=== PATIENT | male | born 1965 | race Caucasian/White ===

== ENCOUNTER 2023-07-31 07:49 | Outpatient (CLI) | payer OTHER, SELFPAY ==
--- NOTE | 2023-07-31 07:54 | FL_ITS ---
FINAL REPORT CLINICAL HISTORY: GERD Fluoro time: 3.51 DAP: 6302.78 FINDINGS: UPPER GI WITH SBFT HISTORY: Epigastric pain. Gastroesophageal reflux disease. PROCEDURE: The patient ingested barium. Effervescent crystals were also administered. Spot and overhead films were obtained. Additional barium was administered for a SBFT. 30 images were obtained. Fluoro time: 3 minutes 51 seconds DAP: 6302.78 uGy.m2 FINDINGS: UGI: The esophagus is normal. There is a small sliding type hiatal hernia hiatal hernia. There was gastroesophageal reflux. Peristalsis is normal. The rugal fold pattern of the stomach is normal. The duodenal bulb is normal. SBFT: The station worker film is normal. There is no evidence of obstruction. The mucosal fold pattern is normal. The terminal ilium is normal. IMPRESSION: Small sliding-type hiatal hernia with gastroesophageal reflux. Unremarkable small bowel follow-through. Films reviewed , interpreted and dictated by Dr. Yadav. Transcribed by Howard Marlow PA-C. Reviewed, Interpreted and Dictated by Lisandro Yadav MD Transcribed by TON Ferguson Authenticated and [facility]
[2023-07-31] MEDS: BARIUM SULFATE(LIQUID E-Z-PAQUE);355ML BOTTLE 355 ML PO (08:33)
[2023-07-31] MEDS: BARIUM SULFATE (E-Z-HD 340GM);135ML BOTTLE 135 ML PO (08:33)
[2023-07-31] MEDS: E-Z-GASII EFFERVESCENT GRANULES;1PK 1 EACH PO (08:34)
[2023-07-31] MEDS: DIATRIZOATE MEGLUMINE(GASTROGRAFIN) 66%-10% 120ML 30 ML PO (08:34)
== END 2023-07-31 23:59 ==
LOC: RAD 07:49
PROVIDERS: PCP Family Medicine; Visit Provider Physician Assistant
DX: K21.9 Gastro-esophageal reflux disease without esophagitis (principal)
CPT/HCPCS: 74246; 74248

== ENCOUNTER 2024-07-29 12:34 | Emergency (ER) | payer OTHER, SELFPAY ==
[2024-07-29 12:42] VITALS: BMI 28.7
--- NOTE | 2024-07-29 12:43 | XR_ITS ---
FINAL REPORT CLINICAL HISTORY: FALL COMPARISON: None FINDINGS: LEFT FOOT Three views of the left foot demonstrate no acute fracture or dislocation. The visualized joint spaces are normally aligned. There is a small plantar spur. The soft tissues are unremarkable. IMPRESSION: No acute bony abnormality. Reviewed, Interpreted and Dictated by Lisandro Yadav MD Transcribed by Ilana Avila Authenticated and [facility]
--- NOTE | 2024-07-29 12:43 | XR_ITS ---
FINAL REPORT CLINICAL HISTORY: FALL COMPARISON: None FINDINGS: LEFT ANKLE Three views demonstrate no acute fracture or dislocation. There is prominent soft tissue swelling about the ankle, particularly medially. There are well corticated ossific densities adjacent to the medial malleolus measuring up to 7 mm. These probably represent sequela from old trauma but do not appear acute. There is a small plantar spur seen on the lateral view. IMPRESSION: Soft tissue swelling without definite acute bony abnormality. Reviewed, Interpreted and Dictated by Lisandro Yadav MD Transcribed by Ilana Avila Authenticated and [facility]
[2024-07-29 13:40] VITALS: BP 113/83; PULSE 87; RESP 20; TEMP 36.7; O2SAT 97; BMI 28.4
--- NOTE | 2024-07-29 13:41 | ED_ITS ---
Discharge Plan Disposition Patient Disposition: Home, Self-Care Condition: Good Prescriptions Prescriptions: No Action omeprazole 40 mg capsule,delayed release(DR/EC) 40 mg PO DAILY Qty: 30 2RF Referrals Follow up/Referrals: Liang Cifuentes MD [Primary Care Provider] - See instructions Roz Moses DPM [Staff Physician] - See instructions Activity Restrictions/Add. Instructions Additional Instructions/Restrictions: Rest the extremity, apply ice for 15 minutes as tolerated three or four times per day for the next couple of days, Elevate the extremity as tolerated while you are resting. Take tylenol or ibuprofen for pain. Follow up with Dr. Moses (podiatry). I put in a referral but you need to call her office and schedule an appointment. Follow up with your regular doctor. GO TO THE ER FOR ANY WORSENING SYMPTOMS Clinical Impressions Clinical Impression: Sprain of left foot, Avulsion fracture of lateral malleolus of left fibula Instructions Patient Instructions: DI for Avulsion Fracture, DI for Foot Sprain, How to Use a Walking Boot Print Language Print Language: Sinhala Discharge ED Provider: Devonte Garza [facility] General Stated complaint: fall L ankle pain 07/28 Time Seen by Provider: 07/29/24 13:40 History of Present Illness Provider Complaint: He states that yesterday he slipped on ice and twisted his left ankle and foot. Since then he has had left ankle and foot swelling and pain. He states that his pain is much worse when he walks or bears weight on the foot. He denies any other injury. Related Data Previous Rx's ?Medication ?Instructions ?Recorded omeprazole 40 mg capsule,delayed 40 mg PO DAILY #30 caps 04/09/22 release Allergies Allergy/AdvReac Type Severity Reaction Status Date / Time No Known Allergies Allergy Verified 04/09/22 15:53 [facility] Disclaimer: The information contained in this section may have been updated after the patient was seen, as this information can be updated by other users. Social History Smoking Status: Never smoker alcohol intake: never current occupational status: retired Travel in the last 8 weeks: None ROS Obtained: Yes All systems reviewed & no additional complaints except as documented Constitutional Constitutional: Denies chills and Denies fever(s) Eyes Eyes: Denies eye discharge ENT Ears, Nose, Mouth, and Throat: Denies dizziness, Denies otalgia and Denies sore throat Cardiovascular Cardiovascular: Denies chest pain Respiratory Respiratory: Denies shortness of breath, Denies chest congestion, Denies cough, Denies stridor and Denies wheezing Gastrointestinal Gastrointestingal: Denies nausea or vomiting Musculoskeletal Musculoskeletal: Reports as per HPI Integumentary/Breasts Skin/Breast: Denies rash Neurologic Neurologic: Denies dizziness and Denies paresthesias Allergic/Immunologic Allergic/Immunologic: Denies wheezing Physical Exam General General appearance: alert and in no apparent distress Head Head exam: atraumatic, normocephalic and normal inspection Eye Eye exam: Present normal appearance, PERRL and EOMI ENT ENT exam: Present normal exam, normal oropharynx, mucous membranes moist, TM's normal bilaterally and normal external ear exam Neck Neck exam: Present normal inspection, full ROM and trachea midline; Absent meningismus or lymphadenopathy Chest Chest inspection: Present normal inspection and symmetric chest wall rise; Absent tenderness Respiratory Respiratory exam: Present normal lung sounds bilaterally; Absent respiratory distress Cardiovascular Cardiovascular exam: Present regular rate and normal rhythm; Absent JVD Abdominal Exam Abdominal exam: Present soft and normal bowel sounds; Absent distention, tenderness or guarding Extremities Exam Extremities exam: Present normal capillary refill; Absent calf tenderness Expanded Lower Extremity Exam Left: Knee exam: Present normal inspection, full ROM and knee extension intact; Absent tenderness Lower leg exam: Present normal inspection, full ROM and Achilles tendon intact; Absent tenderness or Homans' sign Ankle exam: Present tenderness and swelling; Absent full ROM, abrasion, laceration, ecchymosis, deformity, crepitus, dislocation, erythema, tenderness over talofibular lig or anterior draw sign Foot/toe exam: Present tenderness and swelling; Absent full ROM, abrasion, laceration, ecchymosis, deformity, crepitus, dislocation, erythema, amputation, puncture wound, foreign body, calcaneal tenderness, tenderness at base of 5th metatarsal, nail avulsion or subungual hematoma Neurovascular/Tendon exam: Present normal capillary refill, normal 2-point discrimination and normal fine/light touch; Absent pulse deficit, motor deficit, sensory deficit, tendon deficit, extremity cold to touch or pallor Gait: observed and limited by pain Back Exam Back exam: Present normal inspection; Absent tenderness Neurological Exam Neurological exam: Present alert and oriented X3 Psychiatric Psychiatric exam: Present normal affect and normal mood Skin Skin exam: Present warm, dry, intact and normal color Lymphatic Lymphatic Findings: no adenopathy Medical Decision Making Medical Records Medical records reviewed: No I reviewed the patient's medical records. Screening: Per USPSTF and CDC recommendations, given the prevalence of disease in our region, it is our hospital?s policy to screen for HIV and viral Hepatitis for all patients aged 18 and over and those with ongoing risk factors. Hubert Inquiry Pt receiving controlled substance: No Orders (Tests/Meds): ORDERS Category Date Time Status Foot XR left minimum 3 views [XR foot LT min 3V] Stat Exams 07/29/24 12:43 Completed XR ankle LT min 3V Stat Exams 07/29/24 12:43 Completed Radiology Data #1: Image(s): Foot/Toes Image Reviewed: Yes I reviewed the patient's radiology image and Yes I have reviewed radiologist's interpretation Preliminary Findings: No Fracture Seen Accession No. 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 The visualized joint spaces are normally aligned. There is a small plantar spur. The soft tissues are unremarkable. IMPRESSION: No acute bony abnormality. Reviewed, Interpreted and Dictated by Heather Yadav MD Transcribed by Ilana Avila Authenticated and [facility] #2: Image(s): Ankle Image Reviewed: Yes I reviewed the patient's radiology image and Yes I have reviewed radiologist's interpretation Preliminary Findings: Abnormal Accession No. 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 There is prominent soft tissue swelling about the ankle, particularly medially. There are well corticated ossific densities adjacent to the medial malleolus measuring up to 7 mm. These probably represent sequela from old trauma but do not appear acute. There is a small plantar spur seen on the lateral view. IMPRESSION: Soft tissue swelling without definite acute bony abnormality. Reviewed, Interpreted and Dictated by Heather Yadav MD Transcribed by Ilana Avila Authenticated and [facility] Procedures Risk/Benefits of Procedure(s) Were Explained: Yes Orthopedic Splinting/Casting Injury #1: Side: left Lower Extremity Injury Location: lower leg, ankle and foot Lower Extremity Immobilizer: boot orthosis and applied by nurse/dr terrazas Post Cast/Splinting Neuro Status: intact and no change Post Cast/Splinting Vasc Status: intact and no change
[2024-07-29 14:40] VITALS: BP 113/83; PULSE 87; RESP 20; TEMP 36.7; O2SAT 97
== END 2024-07-29 14:42 | disposition home or self-care (01) ==
PROVIDERS: Emergency Provider Nurse Practitioner Family; PCP Family Medicine
DX: S93.602A Unspecified sprain of left foot, initial encounter (principal); W00.9XXA Unspecified fall due to ice and snow, initial encounter
CPT/HCPCS: 73610; 73630; 99213; G0381

== ENCOUNTER 2024-08-29 13:09 | Outpatient (CLI) | payer OTHER, SELFPAY ==
--- NOTE | 2024-08-29 13:13 | XR_ITS ---
FINAL REPORT CLINICAL HISTORY: Left Avulsion Fracture COMPARISON: None FINDINGS: LEFT TIBIA FIBULA: 3 views of the tibia and fibula were obtained. There is a healing proximal fibular shaft fracture. There is a cortical avulsion fracture along the inferior medial malleolus, which appears more remote. There is a probable nondisplaced fracture of the posterior malleolus, difficult to appreciate on the current examination and on the prior ankle film. IMPRESSION: Healing proximal fibular shaft fracture. Cortical avulsion fracture along the inferior medial malleolus, which appears remote. Probable nondisplaced fracture of the posterior malleolus, difficult to appreciate on both the current examination on the prior ankle series. Reviewed, Interpreted and Dictated by Taylor Guallpa MD Transcribed by Nida Cadena Authenticated and [facility]
== END 2024-08-29 23:59 | disposition home or self-care (01) ==
LOC: RAD 13:09
PROVIDERS: PCP Family Medicine; Visit Provider Podiatrist
DX: M79.662 Pain in left lower leg (principal); S82.62XA Displaced fracture of lateral malleolus of left fibula, initial encounter for closed fracture
CPT/HCPCS: 73590

== ENCOUNTER 2024-09-08 12:31 | Outpatient (CLI) | payer OTHER, SELFPAY ==
--- NOTE | 2024-09-08 12:32 | MR_ITS ---
FINAL REPORT TECHNIQUE: Multiplanar MR imaging of the left lower leg was obtained without contrast. CLINICAL HISTORY: eval medial mall avulsion fx, proximal fib fx, COMPARISON: 08/29/2024 FINDINGS: There is an oblique fracture of the proximal fibular shaft with 5 mm of displacement. There is no bony union at this time. There is moderate surrounding soft tissue edema. Mild periostitis is identified. There is a healing fracture of the posterior malleolus without displacement. This appears slightly older than the proximal fibular fracture. There is a transverse fracture involving the tip of the medial malleolus. There is a very small amount of marrow edema within the fracture fragment. It remains unclear whether this is a chronic fracture or late subacute fracture. The MRI appearance is as old or older than the posterior malleolar fracture. There is 2.5 mm of displacement associated with the medial malleolar fracture. IMPRESSION: Subacute fracture of the proximal fibular shaft with significant edema. Posterior and medial malleolus fractures which appear older than the proximal fibular fracture. The medial malleolus fracture is of indeterminate age in regards to chronic or late subacute.. Reviewed, Interpreted and Dictated by Taylor Guallpa MD Transcribed by Aye Franklin Authenticated and . [facility]
== END 2024-09-08 23:59 | disposition home or self-care (01) ==
LOC: RAD 12:32
PROVIDERS: PCP Family Medicine; Visit Provider Podiatrist
DX: M25.572 Pain in left ankle and joints of left foot (principal); S96.912D Strain of unspecified muscle and tendon at ankle and foot level, left foot, subsequent encounter; S82.52XD Displaced fracture of medial malleolus of left tibia, subsequent encounter for closed fracture with routine healing; S93.492D Sprain of other ligament of left ankle, subsequent encounter; S82.62XD Displaced fracture of lateral malleolus of left fibula, subsequent encounter for closed fracture with routine healing
CPT/HCPCS: 73718

== ENCOUNTER 2024-10-04 12:25 | Outpatient (CLI) | payer OTHER, SELFPAY ==
--- NOTE | 2024-10-04 12:36 | XR_ITS ---
FINAL REPORT CLINICAL HISTORY: Left lower extremity pain COMPARISON: 08/29/2024 FINDINGS: 2 views of the left tibia/fibula were obtained. There is a healing fracture of the proximal fibula. Callus formation is again noted. Mild displacement is stable. Osteopenia is noted. There are mild degenerative changes of the ankle and knee joints. IMPRESSION: Mild further healing proximal fibular shaft fracture. Reviewed, Interpreted and Dictated by Taylor Guallpa MD Transcribed by Ilana Avila Authenticated and [facility]
== END 2024-10-04 23:59 | disposition home or self-care (01) ==
LOC: RAD 12:26
PROVIDERS: PCP Family Medicine; Visit Provider Podiatrist
DX: M79.662 Pain in left lower leg (principal); S93.432D Sprain of tibiofibular ligament of left ankle, subsequent encounter; S82.832D Other fracture of upper and lower end of left fibula, subsequent encounter for closed fracture with routine healing
CPT/HCPCS: 73590

== ENCOUNTER 2024-10-18 16:11 | Outpatient (RCR) | payer OTHER, SELFPAY ==
--- NOTE | 2024-10-18 17:39 | HMH.PTOPEV ---
PT Outpatient Evaluation Rehab PT Outpatient Evaluation Start: 10/18/24 16:50 Freq: Status: Active Protocol: Document 10/18/24 16:50 KASSY (Rec: 10/18/24 17:39 KASSY [id number]) E-signed By Tao Lofton, PT Outpatient Therapy Subjective History Subjective History Pt is a 59 yom who presents to [facility] outpatient PT s/p L distal tibia/fibula fracture on 07/28/24. The pt reports that he slipped on ice and his leg folded up under his knee. He reports that he went to the [facility] and was placed in a Fx boot. He reports that he was completely non-weightbearing until 10/04. As of 10/04, he was WBAT in fx boot and instructed to wean to lace-up ankle brace after 2-3 weeks. Pt reports that he has walked short distances out of his brace. He reports that his biggest complaint is the weakness of his ankle and the swelling. 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 PMH: None New diagnosis of cancer in past 12 No months? Chief Complaint Pain,Spasms,Stiff,Swelling, Weakness Symptom Type Ache Symptoms Relieved By OTC Meds Symptoms Aggravated By Standing,Physical Activity, Twisting,Walking Prior Functional Limitations None Current Functional Limitations Lifting,Dressing,Standing, Squatting,Recreation Activity, Walking,Stairs,Balance Symptom Description Intermittent,Activity Dependent Level of pain today (0-10) 0 Pain scale - at its best (0-10) 0 Pain scale - at its worst (0-10) 5 Ankle/Foot Eval Gait Observation General Gait Pattern Observation Antalgic Gait,Decrease Weight Bear (L),Decrease Stride Lngth (R) Palpation Tenderness left Ankle/Foot Palpation Overall Comment 0/4 to palpatory exam ROM Ankle/Foot Dorsiflexion w/Knee Extended 6 Active Range Motion (degrees) Ankle/Foot Dorsiflexion w/Knee Extended 10 Passive Range (degrees) Ankle/Foot Plantar Flexion Active Range 18 of Motion (degrees) Ankle/Foot Plantar Flexion Passive Range 24 of Motion (degrees) Ankle/Foot Eversion Active Range of 10 Motion (degrees) Ankle/Foot Eversion Passive Range of 12 Motion (degrees) Ankle/Foot Inversion Active Range of 17 Motion (degrees) Ankle/Foot Inversion Passive Range of 21 Motion (degrees) Ankle/Foot ROM Limitations Soft Tissue Tightness,Pain MMT Ankle Dorsiflexion Strength Grade 2 Poor Ankle Plantarflexion Strength Grade 2 Poor Foot Eversion Strength Grade 2+ Poor+ Foot Inversion Strength Grade 2+ Poor+ Lower Extremity Functional Index Activities Today, do you or would you have any difficulty at all with: a.Any of your usual work, housework or Extreme difficulty or unable school activities to perform activity b. Your usual hobbies, recreational or Extreme difficulty or unable sporting activities to perform activity c. Getting into or out of the bath Moderate difficulty d. Walking between rooms Quite a bit of difficulty e. Putting on your shoes or socks Quite a bit of difficulty f. Squatting Quite a bit of difficulty g. Lifting an object, like a bag of Moderate difficulty groceries from the floor h. Performing light activities around Extreme difficulty or unable your home to perform activity i. Performing heavy activities around Extreme difficulty or unable your home to perform activity j. Getting into or out of a car Quite a bit of difficulty k. Walking 2 blocks Extreme difficulty or unable to perform activity l. Walking a mile Extreme difficulty or unable to perform activity m. Going up or down 10 stairs (about 1 Moderate difficulty flight of stairs) n. Standing for 1 hour Extreme difficulty or unable to perform activity o. Sitting for 1 hour Extreme difficulty or unable to perform activity p. Running on even ground Extreme difficulty or unable to perform activity q. Running on uneven ground Extreme difficulty or unable to perform activity r. Making sharp turns while running fast Extreme difficulty or unable to perform activity s. Hopping Extreme difficulty or unable to perform activity t. Rolling over in bed Quite a bit of difficulty LEFI Score Lower Extremity Functional Index Score 11 Miscellaneous Dx PT Eval Objective Objective Figure 8: 59.7 cm Outpatient Therapy Assessment Impairments Problems/Impairmments Impaired Range of Motion, Impaired Strength,Impaired Gait Pattern,Impaired Walking, Impaired Standing,Impaired Lifting,Impaired Stair Climbing,Impaired Incline Stepping,Impaired Balance, Subjective C/O Pain Prognosis Rehab Potential Good Comment w HEP compliance Clinical Impression Consistent with Diagnosis Yes Consistent with L ankle Fracture Short Term Goals Number of Weeks 4 Increase Range of Motion Yes: 50-75% WNL L ankle ROM Increase Strength Yes: 3/5 to L ankle Improve Gait Pattern with Assistive Yes: Increased stance time on Device LLE in ankle brace Increase Ability to Walk Yes: 1/4 mile without increasing pain Increase Ability to Stand Yes: 30 minutes without increasing pain Improve Balance Yes: Tandem Stance 30s on even surface Improve LEFI Score Yes: >25 Decrease Edema Yes: by 3 cm Decrease Subjective C/O Pain Yes: 09/12 with above assessment Patient to be Ind w/ HEP Yes Oyster Culler Goals Number of Weeks 8 Increase Range of Motion Yes: 75-100% WNL L ankle AROM Increase Strength Yes: 4+/5 to L ankle Improve Gait Pattern without Assistive Yes: Normalized gait pattern Device without ankle brace Increase Ability to Walk Yes: 1/2 mile without increasing pain Increase Ability to Stand Yes: 1 hour without increasing pain Improve Balance Yes: TS on uneven surface for 30 s Improve LEFI Score Yes: >50 Decrease Subjective C/O Pain Yes: 1-08/15 with above assessment Patient to be Ind w/ Advanced HEP Yes Outpatient Therapy Plan of Care Treatment Plan May Include Therapeutic Exercise Including Home Yes Exercise Program Manual Therapy Techniques Yes Neuromuscular Re-education Yes Therapeutic Activities to Return to Yes Previous Functional/Work Level Gait Training Yes ADL/Self Care Education Yes Thermal Modalities Yes Electrical Stimulation Yes Ultrasound/Phonophoresis Yes Iontophoresis Yes Manual Lymphatic Drainage Yes Eval/Re-Eval Yes Frequency Times per week 2 Duration Number of Weeks 8 Addendums This patient is a candidate for social No or vocational rehab? Patient/Guardian verbally acknowledges Yes understanding of treatment program and consents to further treatment? Patient/Guardian verbally acknowledges Yes understanding of diagnosis, prognosis and goals for treatment? Eval Complexity PT Charges 17581 - Low Complexity Shoulder/Elbow Eval Shoulder Objective Measurements Elbow Objective Measurements PHYSICIAN CERTIFICATION: I certify the specified therapy services for Diony Barber are required, authorized, and reviewed every 30 days.
== END 2024-11-02 23:59 | disposition home or self-care (01) ==
LOC: PT 16:11
PROVIDERS: Visit Provider Family Medicine
DX: S82.52XA Displaced fracture of medial malleolus of left tibia, initial encounter for closed fracture (principal)
CPT/HCPCS: 97110; 97140; 97163; 97530; 97760

== ENCOUNTER 2024-11-01 14:00 | Outpatient (RCR) | payer OTHER, SELFPAY | END 2024-11-01 23:59 | disposition home or self-care (01) | LOC: PT 14:00 | PROVIDERS: Visit Provider Podiatrist | DX: S82.832D Other fracture of upper and lower end of left fibula, subsequent encounter for closed fracture with routine healing (principal); S96.912D Strain of unspecified muscle and tendon at ankle and foot level, left foot, subsequent encounter; X58.XXXD Exposure to other specified factors, subsequent encounter ==

== ENCOUNTER 2024-11-09 14:08 | Outpatient (CLI) | payer OTHER, SELFPAY ==
--- NOTE | 2024-11-09 14:15 | XR_ITS ---
FINAL REPORT CLINICAL HISTORY: left knee pain FINDINGS: AP, lateral and oblique views of the left knee were obtained. There is no prior exam for comparison. There is no acute osseous abnormality of the left knee. There is degenerative joint disease, most pronounced involving the patellofemoral compartment. There is a fracture of the proximal fibula. Please see report for tibia/fibula. The soft tissues are normal. There is no joint effusion. IMPRESSION: Degenerative joint disease without acute bony abnormality. Reviewed, Interpreted and Dictated by Lorelei Locke MD Transcribed by Aye Franklin Authenticated and [facility]
--- NOTE | 2024-11-09 14:33 | XR_ITS ---
FINAL REPORT CLINICAL HISTORY: left tib-fib fracture COMPARISON: 10/04/2024 FINDINGS: Left tibia fibula Two views were obtained. There is no fracture or dislocation. There is a chronic fracture of the proximal fibula. Finding is unchanged from previous. No further healing is identified. There is mild degenerative disease of the knee and ankle. No soft tissue abnormality is identified. IMPRESSION: Chronic fracture of the proximal fibula, unchanged from previous. Reviewed, Interpreted and Dictated by Lorelei Locke MD Transcribed by Aye Franklin Authenticated and [facility]
== END 2024-11-09 23:59 | disposition home or self-care (01) ==
LOC: RAD 14:09
PROVIDERS: PCP Family Medicine; Visit Provider Orthopaedic Surgery
DX: M25.562 Pain in left knee (principal); S96.912A Strain of unspecified muscle and tendon at ankle and foot level, left foot, initial encounter; S82.62XA Displaced fracture of lateral malleolus of left fibula, initial encounter for closed fracture
CPT/HCPCS: 73562; 73590

== ENCOUNTER 2024-11-30 18:43 | Outpatient (CLI) | payer OTHER, SELFPAY ==
--- NOTE | 2024-11-30 17:00 | MR_ITS ---
FINAL REPORT CLINICAL HISTORY: previous injury to the left tib/fib - can't straighten left knee COMPARISON: None FINDINGS: Multi planar MR imaging was performed of the left knee. The anterior and posterior cruciate ligaments are intact. The quadriceps and patellar tendons are intact. There is linear abnormal signal in the posterior horn of the medial meniscus consistent with tear. The medial and lateral collateral ligaments appear intact. The medial and lateral retinacula appear intact. Multiple small osteochondral lesions are seen along the anterior aspect of the lateral femoral condyle. Small to moderate osteophytes are seen along the undersurface of the patella. There is a small joint effusion. IMPRESSION: Multiple small osteochondral lesions anterior aspect lateral femoral condyle. Full-thickness tear posterior horn medial meniscus. Reviewed, Interpreted and Dictated by Lisandro Yadav MD Transcribed by Ilana Avila Authenticated and . [facility]
== END 2024-11-30 23:59 | disposition home or self-care (01) ==
LOC: RAD 18:44
PROVIDERS: PCP Family Medicine; Visit Provider Orthopaedic Surgery
DX: S83.242A Other tear of medial meniscus, current injury, left knee, initial encounter (principal); M23.92 Unspecified internal derangement of left knee; M94.8X5 Other specified disorders of cartilage, thigh
CPT/HCPCS: 73721

== ENCOUNTER 2024-12-02 16:00 | Outpatient (RCR) | payer OTHER, SELFPAY ==
--- NOTE | 2024-11-22 18:09 | HMH.RHREAS ---
Rehab Reassessment Rehab OP Re-assessment Start: 11/03/24 15:54 Freq: Status: Active Protocol: Document 11/22/24 17:04 SERAMIKE (Rec: 11/22/24 18:09 KASSY [id number]) E-signed By Tao Lofton PT Lower Extremity Functional Index Activities Today, do you or would you have any difficulty at all with: a.Any of your usual work, housework or Moderate difficulty school activities b. Your usual hobbies, recreational or Moderate difficulty sporting activities c. Getting into or out of the bath A little bit of difficulty d. Walking between rooms A little bit of difficulty e. Putting on your shoes or socks Moderate difficulty f. Squatting Extreme difficulty or unable to perform activity g. Lifting an object, like a bag of No difficulty groceries from the floor h. Performing light activities around A little bit of difficulty your home i. Performing heavy activities around A little bit of difficulty your home j. Getting into or out of a car A little bit of difficulty k. Walking 2 blocks Extreme difficulty or unable to perform activity l. Walking a mile Extreme difficulty or unable to perform activity m. Going up or down 10 stairs (about 1 Moderate difficulty flight of stairs) n. Standing for 1 hour A little bit of difficulty o. Sitting for 1 hour No difficulty p. Running on even ground Extreme difficulty or unable to perform activity q. Running on uneven ground Extreme difficulty or unable to perform activity r. Making sharp turns while running fast Extreme difficulty or unable to perform activity s. Hopping Extreme difficulty or unable to perform activity t. Rolling over in bed No difficulty LEFI Score Lower Extremity Functional Index Score 38 Rehab Re-assessment Subjective Subjective Pt reports that he has improved 75-80%. Reports his pain is a maximum of 5/10 at this point. Reports he is able to be on his feet for hours before he is required to sit down. Reports PT is helping and would like to continue. Objective Objective Notes LEFS: 38 (11 on IE) TTP: 0/4 to L ankle. Figure 8: 52 cm TS: 60s on even surface. 40s on uneven surface Gait: Slightly antalgic Gait. Decreased WB on RLE MMT: 4/5 to R ankle grossly ROM: 75% WNL Dorsiflexion. 100 % WNL Eversion, Inv, PF. Assessment Progress Assessment Progressing as Expected Assessment Notes Pt has made significant progress at this time. He demonstrates improved ambulation/gait mechanics, improved strength, balance and motion. He also demonstrates improved edema. The pt continues to present below his normal baseline and would continue to benefit from skilled PT. Patient goals met ST,2,3,5,6,8 LT,6 Plan Plan continue as per initial POC Frequency of Therapy 2/week Duration of therapy 4 weeks Time and Billing Re-Eval Time 10 Re-Eval Billing Units 1 Charge for PT reassessment? Yes PHYSICIAN CERTIFICATION: I certify the specified therapy services for Diony Barber are required, authorized, and reviewed every 30 days.
== END 2024-12-02 23:59 | disposition home or self-care (01) ==
LOC: PT 16:00
PROVIDERS: Visit Provider Podiatrist
DX: S82.832D Other fracture of upper and lower end of left fibula, subsequent encounter for closed fracture with routine healing (principal); S96.912D Strain of unspecified muscle and tendon at ankle and foot level, left foot, subsequent encounter; X58.XXXD Exposure to other specified factors, subsequent encounter
CPT/HCPCS: 97110; 97164; 97530

== ENCOUNTER 2024-12-28 12:43 | Outpatient (CLI) | payer OTHER, SELFPAY ==
--- OUTSIDE RECORDS SUMMARY | 2024-12-28 12:46 | XMS_ITS | Clinical Summary ---
Author Organization [facility] are Address [address] [place], [place] [address] Phone Care Team Providers Care Print Line Inspector Name Role Phone Tammy Acevedo LPN Unavailable Unavailab le Conditions or Problems No information available. Medications No information available. Medications Administered No information available. Allergies, Adverse Reactions, Alerts No information available. Results No information available. Plan of Care No information available. Procedures No information available. Vital Signs No information available. Immunizations No information available. Advance Directives No information available.
--- OUTSIDE RECORDS SUMMARY | 2024-12-28 12:46 | XMS_ITS | Clinical Summary ---
Author Organization [facility] Address [address] [place] [address] Phone Care Team Providers Care Char Filter Operator Helper Name Role Phone Naila Ram [facility] Primary Care Provider [phone] [phone] Allergies No known active allergies Medications traMADol (ULTRAM) 50 mg tablet Take 50 mg by mouth daily. Active MELOXICAM ORAL Take by mouth daily. Active LISINOPRIL ORAL Take by mouth daily. Active sertraline (ZOLOFT) 20 mg/mL concentrated solution Take 20 mg by mouth daily. Active OMEPRAZOLE ORAL Take by mouth as needed. Active clindamycin (CLEOCIN) 300 mg Oral Capsule Take 1 Cap by mouth 4 times daily. 40 Cap 0 06/29/2014 Active HYDROcodone-aceta minophen (NORCO) 5-325 mg Oral Tablet Take 5-10 mg by mouth every 6 hours as needed. 12 Tab 0 06/29/2014 Active Surgical History Surgery Date Site/Laterality Comments APPENDECTOMY KNEE SURGERY COLONOSCOPY Medical History Medical History Date Comments GERD (gastroesophageal reflux disease) Family History Medical History Relation Name Comments Colon Polyps Mother Relation Name Status Comments Mother Social History Tobacco Use Types Packs/Day Years Used Date Smoking Tobacco: Former Cigarettes Cigars Smokeless Tobacco: Never Alcohol Use Standard Drinks/Week Comments No 0 (1 standard drink = 0.6 oz pur e alcohol) Sex and Gender Information Value Date Recorded Sex Assigned at Not on file Legal Sex Male 4:40 PM EDT Gender Identity Not on file Sexual Orientation Not on file Obstetrics History Last Filed Vital Signs Vital Sign Reading Time Taken Comments Blood Pressure 161/107 06/29/2014 10:38 AM EST Pulse 76 06/29/2014 10:38 AM EST Temperature 36.6 C (97.9 F) 06/29/2014 10:38 AM EST Respiratory Rate 14 06/29/2014 10:38 AM EST Oxygen Saturation 97% 06/29/2014 10:38 AM EST Inhaled Oxygen Concentration - - Weight 112.5 kg (248 lb) 11/17/2013 3:51 PM EDT Height 180.3 cm (5' 11 ) 11/17/2013 3:51 PM EDT Body Mass Index 34.59 11/17/2013 3:51 PM EDT Plan of Treatment Health Maintenance Due Date Last Done Comments Annual Wellness Exam 1968 DTaP/TDaP/Td (1 - Tdap) 1984 Hepatitis B Vaccine (1 of 3 - 19+ 3-dose series) 1984 Cologuard 2010 FIT 2010 Sigmoidoscopy 2010 Virtual Colonography 2010 Pneumococcal Vaccine 50+ (1 of 1 - PCV) 09/09/2015 Zoster (1 of 2) 09/09/2015 Colon Cancer Screening 11/26/2023 Colonoscopy 11/26/2023 11/25/2013 COVID-19 Vaccine (1 - 2023-2 5 season) 2024 Influenza Vaccine (Season Ended) 2025 Meningococcal B Vaccine Aged Out No l onger eligible based on patient's age to complete this topic Procedures Procedure Name Priority Date/Time Associated Diagnosis Comments GMED COLONOSCOPY Routine 11/25/2013 10:3 0 AM EDT from Last 3 Months or Most Recently Relevant to Health Maintenance Results * GMED COLONOSCOPY (11/25/2013 10:30 AM EDT) 11/25/2013 10:3 0 AM EDT Impressions [facility] - 11/25/2013 10:57 AM EDT Polyp (3 mm) in the proximal rectum. (Polypectomy). Mild diverticulosis of the sigmoid colon. Grade 1 internal hemorrhoids. Plan: Colonoscopy in 5-10 years depending on pathology results. This section is an excerpt of the full report. us Leo Ortega MD GI PROCEDURE ORDERABLES Fin al Result [facility] [address] [place] [address] from Last 3 Months or Most Recently Relevant to Health Maintenance Insurance [place] [address] [place] [address] Care Teams Char Filter Operator Helper Relationship Specialty Start Date End Date Naila Ram ARNP [address] [place] [address] [address] [place] [id number] PCP - General Nurse Practitioner-Family 11/25/12
--- OUTSIDE RECORDS SUMMARY | 2024-12-28 12:46 | XMS_ITS | Clinical Summary ---
Author Organization [facility] Address [address] [place] [address] Care Team Providers Care Lab Specialist Name Role Phone Liang Cifuentes MD Primary Care Provider [phone] Allergies No known active allergies Medications lisinopril (PRINIVIL;ZESTR IL) 10 MG tablet 09/10/2013 Active omeprazole (PRILOSEC) 40 MG capsule 08/10/2013 Active sertraline (ZOLOFT) 50 MG tablet 09/10/2013 Active meloxicam (MOBIC) 7.5 MG tablet TAKE 2 TABLETS BY MOUTH DAILY 30 tablet 3 12/12/2013 Active oxyCODONE-aceta minophen (PERCOCET) 5-325 MG per tablet 12/12/2013 Active traMADol (ULTRAM) 50 MG tablet Take 1 tablet by mouth every 6 hours as needed for Pain. 40 tablet 0 01/18/2014 Active predniSONE (DELTASONE) 10 MG tablet 1 bid x 3 days 10 tablet 0 01/31/2014 Active Active Problems No known active problems Family History Relation Name Status Comments Father Alive Mother Alive Social History Tobacco Use Types Packs/Day Years Used Date Smoking Tobacco: Former Cigarettes 2 20 Alcohol Use Standard Drinks/Week Comments Not Asked 0 (1 standard drink = 0.6 oz pur e alcohol) Sex and Gender Information Value Date Recorded Sex Assigned at Not on file Legal Sex Male 1:50 PM EDT Gender Identity Not on file Sexual Orientation Not on file Last Filed Vital Signs Vital Sign Reading Time Taken Comments Blood Pressure 122/79 04/18/2014 3:00 PM EDT Pulse 71 04/18/2014 3:00 PM EDT Temperature - - Respiratory Rate - - Oxygen Saturation - - Inhaled Oxygen Concentration - - Weight 112.5 kg (248 lb) 04/18/2014 3:00 PM EDT Height 180.3 cm (5' 11 ) 04/18/2014 3:00 PM EDT Body Mass Index 34.59 04/18/2014 3:00 PM EDT Plan of Treatment Not on file Care Teams Lab Specialist Relationship Specialty Start Date End Date Liang Cifuentes MD [address] [place] [address] [phone] PCP - General 10/04/13
--- OUTSIDE RECORDS SUMMARY | 2024-12-28 12:46 | XMS_ITS | Encounter Summary ---
Author Organization [place] [address] Care Team Providers Care Fruit Room Hand Name Role Phone Naila Ram JOANNE Primary Care Provider [phone] [phone] Encounter Details Date Type Department Care Team (Late st Contact Info) Description 11/25/2013 Orders Only SEP Gastro [facility] [address] [facility] [address] [place] [address] Leo Ortega MD [address] [place] [address] Social History Tobacco Use Types Packs/Day Years Used Date Smoking Tobacco: Never Smokeless Tobacco: Never Alcohol Use Standard Drinks/Week Comments No 0 (1 standard drink = 0.6 oz pur e alcohol) Sex and Gender Information Value Date Recorded Sex Assigned at Not on file Legal Sex Male 4:40 PM EDT Gender Identity Not on file Sexual Orientation Not on file documented as of this encounter Plan of Treatment Not on file documented as of this encounter Procedures Procedure Name Priority Date/Time Associated Diagnosis Comments GMED COLONOSCOPY Routine 11/25/2013 10:3 0 AM EDT documented in this encounter Results * GMED COLONOSCOPY (11/25/2013 10:30 AM EDT) 11/25/2013 10:3 0 AM EDT Impressions [facility] - 11/25/2013 10:57 AM EDT Polyp (3 mm) in the proximal rectum. (Polypectomy). Mild diverticulosis of the sigmoid colon. Grade 1 internal hemorrhoids. Plan: Colonoscopy in 5-10 years depending on pathology results. This section is an excerpt of the full report. us Leo Ortega MD GI PROCEDURE ORDERABLES Fin al Result Performing Organization Address City/State/[facility] Co de Phone Number [facility] [address] [place] [address] documented in this encounter Visit Diagnoses Not on filedocumented in this encounter Care Teams Fruit Room Hand Relationship Specialty Start Date End Date Naila Ram ARNP [address] [place] [address] [address] [place] [address] PCP - General Nurse Practitioner-Family 11/25/12 documented as of this encounter
--- OUTSIDE RECORDS SUMMARY | 2024-12-28 12:46 | XMS_ITS | Referral Summary ---
Author Organization [facility] Address [address] [address] [place] [address] Care Team Providers Care Auditing Clerk Name Role Phone Pcp, Pending Only MD Primary Care Provider [phone] Allergies No known active allergies Medications meloxicam (MOBIC) 15 MG TABS Take 7.5 mg by mouth 2 (two) times daily. Active lisinopril (PRINIVIL,ZESTR IL) 10 MG TABS Take 10 mg by mouth daily. Active sertraline (ZOLOFT) 50 MG TABS Take 50 mg by mouth daily. Active omeprazole (PRILOSEC) 40 MG CPDR Take 40 mg by mouth daily. Active chlorpheniramin e (CHLOR-TRIMETON ) 4 MG TABS Take 4 mg by mouth every 6 (six) hours as needed. Active FIBER PO Take by mouth. Active oxycodone-aceta minophen (PERCOCET) 5-325 MG TABS Take 2 tablets by mouth every 4 (four) hours as needed (1-2 tabs PO q4-6hrs PRN). 50 tablet 0 12/12/2013 Active Social History Tobacco Use Types Packs/Day Years Used Date Smoking Tobacco: Former Cigarettes Q uit: 07/06/2011 Smokeless Tobacco: Never Alcohol Use Standard Drinks/Week Comments No 0 (1 standard drink = 0.6 oz pur e alcohol) Sex and Gender Information Value Date Recorded Sex Assigned at Not on file Legal Sex Male 6:53 PM EDT Gender Identity Not on file Sexual Orientation Not on file Last Filed Vital Signs Vital Sign Reading Time Taken Comments Blood Pressure 125/81 12/12/2013 2:30 PM EDT Pulse 90 12/12/2013 2:30 PM EDT Temperature 36.2 C (97.1 F) 12/12/2013 2:25 PM EDT Respiratory Rate 18 12/12/2013 2:30 PM EDT Oxygen Saturation 92% 12/12/2013 2:30 PM EDT Inhaled Oxygen Concentration - - Weight 113.4 kg (250 lb) 12/12/2013 11:28 AM EDT Height 180.3 cm (5' 11 ) 12/12/2013 11:28 AM EDT Body Mass Index 34.87 12/12/2013 11:28 AM EDT Functional Status * Are you deaf or do you have serious difficulty hearing? Answer Date of Assessment Author No 11/29/2013 3:26 PM EDT Abdullahi Rodas, Frankie Nurse * Are you blind or do you have serious difficulty seeing, even when wearing glasses? Answer Date of Assessment Author No 11/29/2013 3:26 PM EDT Abdullahi Rodas, Registered Nurse * Do you have serious difficulty walking or climbing stairs? (5 years old or older) Answer Date of Assessment Author No 11/29/2013 3:26 PM EDT Abdullahi Rodas, Registered Nurse * Do you have difficulty dressing or bathing? (5 years old or older) Answer Date of Assessment Author No 11/29/2013 3:26 PM EDT Abdullahi Rodas, Registered Nurse * Because of a physical, mental, or emotional condition, do you have difficulty doing errands alone such as visiting a doctor???s office or shopping? (15 years old or older) Answer Date of Assessment Author No 11/29/2013 3:26 PM EDT Abdullahi Rodas Registered Nurse Mental Status * Because of a physical, mental, or emotional condition, do you have serious difficulty concentrating, remembering, or making decisions? (5 years old or older) Answer Entry Date Author No 11/29/2013 3:26 PM EDT Abdullahi Rodas Registered Nurse Plan of Treatment Not on file Medical Devices Implanted Type Area Licsw Device Identifier Shelf Expiration Date Model / Serial / Lot Screw Bio Composite [id number] - [id number] Implanted:Qty: 1 on 12/12/2013 by Aundrea Xie MD at [facility] Left: Shoulder ARTHREX ARTHROSCOPY [facility] [id number] / / Insurance AET ALL OTHERS AETNA ALL OTHERS Care Teams Auditing Clerk Relationship Specialty Start Date End Date Pcp, Pending Only, [place] [address] PCP - General Internal Medicine 11/29/13
--- OUTSIDE RECORDS SUMMARY | 2024-12-28 12:46 | XMS_ITS | Clinical Summary ---
Author Organization [facility] Address [address] [place] [address] Phone Care Team Providers Care Cookie Breaker Name Role Phone Arslan NICHOLAS, Brendan Guillory [phone] Conditions or Problems No information available. Medications No information available. Medications Administered No information available. Allergies, Adverse Reactions, Alerts No information available. Results No information available. Plan of Care No information available. Procedures No information available. Vital Signs No information available. Immunizations No information available. Advance Directives No information available.
--- OUTSIDE RECORDS SUMMARY | 2024-12-28 12:46 | XMS_ITS | Clinical Summary ---
Author Organization [facility] Address [address] [facility] [address] [place] [address] Care Team Providers Care Professor Of Theology Name Role Phone Pcp, Pending Only MD Primary Care Provider Allergies No known active allergies Medications meloxicam [...] Mass Index 34.87 12/12/2013 11:28 AM EDT Plan of Treatment Health Maintenance Due Date Last Done Comments DTap,Tdap,and Td (1 - Tdap) 1976 Colonoscopy 2010 PSA YEARLY 09/09/2015 Pneumococcal 50+ (1 of 1 - PCV) 09/09/2015 Shingrix (#1) 09/09/2015 Influenza Vaccine (Season Ended) 2025 RSV Vaccine (60+ or ) (1 - 1-dose 75+ series) 2040 HPV Aged Out No longer eligi ble based on patient's age to complete this topic Meningococcal conjugate peggy nt 4 (MCV4) Aged Out No longer eligible b ased on patient's age to complete this topic RSV Immunization (<20 months) Aged Out No longer eligible based on patient's age to complete this topic Medical Devices Implanted Type Area Bag Shaker Device Identifier Shelf Expiration Date Model / Serial / Lot Screw Bio Composite [id number] - [id number] Implanted:Qty: 1 on 12/12/2013 by Aundrea Xie MD at [facility] Left: Shoulder ARTHREX ARTHROSCOPY [facility] [id number] / / Insurance [facility] [place] [address] AETNA ALL OTHERS AETNA ALL OTHERS Care Teams Professor Of Theology Relationship Specialty Start Date End Date Pcp, Pending Only, [place], [place] [id number] PCP - General Internal Medicine 11/29/13
[2024-12-28] MEDS: ALBUTEROL 0.083% 2.5 MG/3 ML NEB IH (13:29)
== END 2024-12-28 23:59 | disposition home or self-care (01) ==
LOC: RT 12:44
PROVIDERS: PCP Family Medicine; Visit Provider Family Medicine
DX: R06.02 Shortness of breath (principal)
CPT/HCPCS: 94010; 94727; 94729

== ENCOUNTER 2024-12-28 14:00 | Outpatient (RCR) | payer OTHER, SELFPAY ==
--- NOTE | 2024-12-22 17:29 | HMH.RHREAS ---
Rehab Reassessment Rehab OP Re-assessment Start: 12/05/24 13:03 Freq: Status: Active Protocol: Document 12/22/24 14:59 KASSY (Rec: 12/22/24 17:26 KASSY [id number]) E-signed By Tao Lofton PT Lower Extremity Functional Index Activities Today, do you or would you have any difficulty at all with: a.Any of your usual A little bit of difficulty work, housework or school activities b. Your usual A little bit of difficulty hobbies, recreational or sporting activities c. Getting into or No difficulty out of the bath d. Walking between No difficulty rooms e. Putting on your A little bit of difficulty shoes or socks f. Squatting No difficulty g. Lifting an object No difficulty , like a bag of groceries from the floor h. Performing light No difficulty activities around your home i. Performing heavy A little bit of difficulty activities around your home j. Getting into or No difficulty out of a car k. Walking 2 blocks No difficulty l. Walking a mile A little bit of difficulty m. Going up or down A little bit of difficulty 10 stairs (about 1 flight of stairs) n. Standing for 1 No difficulty hour o. Sitting for 1 No difficulty hour p. Running on even Quite a bit of difficulty ground q. Running on uneven Quite a bit of difficulty ground r. Making sharp Quite a bit of difficulty turns while running fast s. Hopping Quite a bit of difficulty t. Rolling over in No difficulty bed LEFI Score Lower Extremity 62 Functional Index Score Rehab Re-assessment Subjective Subjective Pt reports that he is 90% improved this date. Reports that soreness and stiffness are his only complaints. Pt reports that his pain does not exceed a 2/10 throughout reassessment and treatment session. Pt reports that he would like to do a few more sessions to prepare for discharge to a home exercise program. Objective Objective Notes LEFS: 62 (38 on last RA) TTP: 0/4 to L ankle. TS: 60s on even surface. 60s on uneven surface Gait: Slightly antalgic Gait with first few steps upon standing. After first few steps, gait becomes nearly symmetrical. MMT: 4+/5 to R ankle grossly ROM: 100% WNL Dorsiflexion. 100% WNL Eversion, Inv, PF. Assessment Progress Assessment Progressing as Expected Assessment Notes Pt has made excellent progress and has met or nearly met all stated therapy goals. Pt has demonstrated significant progress in his strength, balance, ROM and reported level of functions. 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 Patient goals met ST/10 LT/9 Plan Plan Continue as per initial POC. Transition to HEP. Frequency of Therapy 1/week Duration of therapy 3-4 weeks Time and Billing Re-Eval Time 10 Re-Eval Billing 1 Units Charge for PT Yes reassessment? PHYSICIAN CERTIFICATION: I certify the specified therapy services for Diony Barber are required, authorized, and reviewed every 30 days.
== END 2024-12-28 23:59 | disposition home or self-care (01) ==
LOC: PT 14:00
PROVIDERS: Visit Provider Podiatrist
DX: S82.832D Other fracture of upper and lower end of left fibula, subsequent encounter for closed fracture with routine healing (principal); S96.912D Strain of unspecified muscle and tendon at ankle and foot level, left foot, subsequent encounter; X58.XXXD Exposure to other specified factors, subsequent encounter
CPT/HCPCS: 97110; 97164; 97530

== ENCOUNTER 2024-12-29 13:19 | Outpatient (CLI) | payer OTHER, SELFPAY ==
--- NOTE | 2024-12-29 13:22 | CT_ITS ---
FINAL REPORT CLINICAL HISTORY: SCREENING former smoker, quit 15 years ago, previous 2 ppd x 20 years COMPARISON: None FINDINGS: CT CHEST LOW DOSE SCREENING 59-year-old male, former smoker, quit 15 years ago, 31-uxgb-yroe history. HISTORY: Screening exam for lung cancer. DOSE: CTDI vol: 2.90 mGy, DLP: 100.81 mGy*cm TECHNIQUE: Axial CT without IV contrast administration using low dose protocol. This study was performed with techniques to keep radiation doses as low as reasonably achievable, (ALARA). Individualized dose reduction techniques using automated exposure control or adjustment of mA and/or kV according to the patient's size were employed. No acute lung disease is present. There are 2 nodules in the peripheral right lower lobe, measuring 3 mm each, best seen on image #43 of series 3. Favor that these represent granulomas. There is evidence of old calcified granulomatous disease. No pleural or pericardial effusion is seen. No adenopathy or mass lesion is present. Note is made of fatty infiltration of the liver. IMPRESSION: 3 mm right lower lobe nodules as described, favor granulomas. LUNG RADS CATEGORY 2 RECOMMENDATION: 12 month LDCT follow up Reviewed, Interpreted and Dictated by Taylor Guallpa MD Transcribed by Nida Cadena Authenticated and . [facility]
--- OUTSIDE RECORDS SUMMARY | 2024-12-29 13:22 | XMS_ITS | Clinical Summary ---
Author Organization [employer] [facility] are Address [address] [place], [place] [address] Phone Care Team Providers Care Commissary Agent Name Role Phone Tammy Acevedo LPN Unavailable [...]
--- OUTSIDE RECORDS SUMMARY | 2024-12-29 13:23 | XMS_ITS | Referral Summary ---
Author Organization [facility] Address [address] [facility] [address] [place] [address] Care Team Providers Care Private Pilot Name Role Phone Pcp, Pending Only MD Primary Care Provider [phone] Allergies No known active allergies Medications meloxicam [...] on file Medical Devices Implanted Type Area Steel Plate Caulker Device Identifier Shelf Expiration Date Model / Serial / Lot Screw Bio Composite [id number] - [id number] Implanted:Qty: 1 on 12/12/2013 by Aundrea Xie MD at [facility] Left: Shoulder ARTHREX ARTHROSCOPY [facility] [id number] / / Insurance AET ALL OTHERS AETNA ALL OTHERS Care Teams Private Pilot Relationship Specialty Start Date End Date Pcp, Pending Only, [place] [address] PCP - General Internal Medicine 11/29/13
--- OUTSIDE RECORDS SUMMARY | 2024-12-29 13:23 | XMS_ITS | Clinical Summary ---
Author Organization [facility] Address [address] [facility] [address] [place] [address] Care Team Providers Care Graphic Design Manager Name Role Phone Pcp, Pending Only MD [...] this topic Medical Devices Implanted Type Area Aquaculture Director Device Identifier Shelf Expiration Date Model / Serial / Lot Screw Bio Composite [id number] - [id number] Implanted:Qty: 1 on 12/12/2013 by Aundrea Xie MD at [facility] Left: Shoulder [employer] [facility] [id number] / / [place] [address] AETNA ALL OTHERS AETNA ALL OTHERS Care Teams Graphic Design Manager Relationship Specialty Start Date End Date Pcp, Pending Only, [place], [place] [id number] PCP - General Internal Medicine 11/29/13
--- OUTSIDE RECORDS SUMMARY | 2024-12-29 13:23 | XMS_ITS | Clinical Summary ---
Author Organization [facility] Address [address] [place] [address] Care Team Providers Care Training Designer Name Role Phone None, None Primary Care Provider Unavailabl e Allergies No known active allergies Medications SERTRALINE HCL (ZOLOFT PO) Take by mouth. Active OMEPRAZOLE PO Take by mouth. Active Family History Relation Name Status Comments Father Alive Mother Alive Social History Tobacco Use Types Packs/Day Years Used Date Smoking Tobacco: Former Sex and Gender Information Value Date Recorded Sex Assigned at Not on file Legal Sex Male 3:39 PM EDT Gender Identity Not on file Sexual Orientation Not on file Plan of Treatment Health Maintenance Due Date Last Done Comments Cologuard 1965 Colonoscopy 1965 Colorectal Cancer Screening 1965 FIT 1965 Lipid Screening 09/09/1983 Tetanus Vaccination (Every 10 Years) 09/09/1983 Pneumococcal Vaccine: 50+ Years (1 of 1 - PCV) 016 Zoster-RZV(Shingrix) (1 of 2) 09/09/2015 COVID-19 Vaccine ( season) 2024 Depression Screening 07/06/2024 Influenza Vaccination (Season Ended) 2025 Insurance AETNA Care Teams Training Designer Relationship Specialty Start Date End Date None, None [address] [place] [address] PCP - General 03/16/15
--- OUTSIDE RECORDS SUMMARY | 2024-12-29 13:23 | XMS_ITS | Encounter Summary ---
Author Organization [place] [address] Care Team Providers Care Adjunct Writing Instructor Name Role Phone Naila Ram JOANNE Primary Care Provider [phone] Encounter Details Date Type Department Care Team (Late st Contact Info) Description 11/25/2013 Orders Only SEP Gastro CV[facility] [address] [facility] [address] [place] [address] Leo Ortega MD [address] [place] [address] Social History Tobacco Use Types Packs/Day Years [...] excerpt of the full report. us Leo Ortgea MD GI PROCEDURE ORDERABLES Fin al Result Performing Organization Address City/State/[facility] Co de Phone Number [facility] [address] [place] [address] documented in this encounter Visit Diagnoses Not on filedocumented in this encounter Care Teams Adjunct Writing Instructor Relationship Specialty Start Date End Date Naila Ram ARNP [address] [place] [address] [address] [place] [address] PCP - General Nurse Practitioner-Family 11/25/12 documented as of this encounter
--- OUTSIDE RECORDS SUMMARY | 2024-12-29 13:23 | XMS_ITS | Clinical Summary ---
Author Organization [facility] Address [address] [place] [address] Phone Care Team Providers Care Regional [employer] Driver Name Role Phone Naila Ram [facility] Primary Care Provider [phone] Allergies No known active allergies Medications traMADol [...] EDT) 11/25/2013 10:3 0 AM EDT Impressions [facility] - 11/25/2013 10:57 AM EDT Polyp (3 mm) in the proximal rectum. (Polypectomy). Mild diverticulosis of the sigmoid colon. Grade 1 internal hemorrhoids. Plan: Colonoscopy in 5-10 years depending on pathology results. This section is an excerpt of the full report. us Leo Ortega MD GI PROCEDURE ORDERABLES Fin al Result [facility] [address] [place] [address] from Last 3 Months or Most Recently Relevant to Health Maintenance Insurance [place] [address] [place] [address] Care Teams [employer] Driver Relationship Specialty Start Date End Date Naila Ram ARNP [address] [place] [address] [address] [place] [id number] PCP - General Nurse Practitioner-Family 11/25/12
== END 2024-12-29 23:59 | disposition home or self-care (01) ==
LOC: RAD 13:20
PROVIDERS: PCP Family Medicine; Visit Provider Family Medicine
DX: Z12.2 Encounter for screening for malignant neoplasm of respiratory organs (principal); R91.8 Other nonspecific abnormal finding of lung field; Z87.891 Personal history of nicotine dependence; K76.0 Fatty (change of) liver, not elsewhere classified
CPT/HCPCS: 71271

== ENCOUNTER → 2025-01-12 16:00 | Outpatient (RCR) | payer OTHER, SELFPAY | LOC: PT 01-05 15:55 | PROVIDERS: Visit Provider Podiatrist | DX: S82.832D Other fracture of upper and lower end of left fibula, subsequent encounter for closed fracture with routine healing (principal); S96.912D Strain of unspecified muscle and tendon at ankle and foot level, left foot, subsequent encounter | CPT/HCPCS: 97110; 97530 ==

== ENCOUNTER 2025-02-14 12:05 | Outpatient (CLI) | payer OTHER, SELFPAY ==
--- NOTE | 2025-02-14 12:07 | XR_ITS ---
FINAL REPORT CLINICAL HISTORY: fracture evaluation fell on ice in jul COMPARISON: 10/04/2024 FINDINGS: Two views of the left tibia/fibula were obtained. There is partial bony union of an oblique fracture of the proximal fibular shaft. The majority of the fracture shows nonunion. Displacement measures up to 5 mm and is stable. The tibia is intact. The joint spaces are intact. There is no soft tissue abnormality. 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 Reviewed, Interpreted and Dictated by Taylor Guallpa MD Transcribed by Ilana Avila Authenticated and [facility]
--- OUTSIDE RECORDS SUMMARY | 2025-02-14 12:08 | XMS_ITS | Clinical Summary ---
Author Organization [facility] Address [address] [place] [address] Care Team Providers Care Angiographer Name Role Phone None, None Primary Care [...] (1 of 2) 09/09/2015 COVID-19 Vaccine ( - season) 2024 Depression Screening 07/06/2024 Influenza Vaccination (#1) 2025 Insurance AETNA Care Teams Angiographer Relationship Specialty Start Date End Date None, None [address] [place] [address] PCP - General 03/16/15
--- OUTSIDE RECORDS SUMMARY | 2025-02-14 12:08 | XMS_ITS | Referral Summary ---
Author Organization [facility] Address [address] [facility] [address] [place] [address] Care Team Providers Care Strip Stamp Straightener Name Role Phone Pcp, Pending Only MD Primary Care Provider [phone] Allergies No known active allergies Medications meloxicam [...] on file Medical Devices Implanted Type Area Carpenter'S Assistant Device Identifier Shelf Expiration Date Model / Serial / Lot Screw Bio Composite [id number] - [id number] Implanted:Qty: 1 on 12/12/2013 by Aundrea Xie MD at [facility] Left: Shoulder [employer]ROS[employer] [facility] [id number] / / Insurance AET ALL OTHERS AETNA ALL OTHERS Care Teams Strip Stamp Straightener Relationship Specialty Start Date End Date Pcp, Pending Only, [place] [address] PCP - General Internal Medicine 11/29/13
--- OUTSIDE RECORDS SUMMARY | 2025-02-14 12:08 | XMS_ITS | Clinical Summary ---
Author Organization [facility] Address [address] [facility] [place] [address] Phone Care Team Providers Care Nematology Teacher Name Role Phone Naila Ram [facility] Primary Care Provider [phone] Allergies No known active allergies Medications traMADol [...] - 2023-2 5 season) 2024 Influenza Vaccine (#1) 2025 Meningococcal B Vaccine Aged Out No l onger eligible based on patient's age to complete this topic Procedures Procedure Name Priority Date/Time Associated Diagnosis Comments [facility] COLONOSCOPY Routine 11/25/2013 10:3 0 AM EDT from Last 3 Months or Most Recently Relevant to Health Maintenance Results * [facility] COLONOSCOPY (11/25/2013 10:30 AM EDT) 11/25/2013 10:3 0 AM EDT Impressions [facility] - 11/25/2013 10:57 AM EDT Polyp (3 mm) in the proximal rectum. (Polypectomy). Mild diverticulosis of the sigmoid colon. Grade 1 internal hemorrhoids. Plan: Colonoscopy in 5-10 years depending on pathology results. This section is an excerpt of the full report. us Leo Ortega MD GI PROCEDURE ORDERABLES Fin al Result [facility] [address] [place] [address] from Last 3 Months or Most Recently Relevant to Health Maintenance Insurance [place] [place] [address] [place] [address] Care Teams Nematology Teacher Relationship Specialty Start Date End Date Naila Ram ARNP [address] [place] [address] [address] [place] [id number] PCP - General Nurse Practitioner-Family 11/25/12
--- OUTSIDE RECORDS SUMMARY | 2025-02-14 12:08 | XMS_ITS | Clinical Summary ---
Author Organization [facility] Address [address] [facility] [address] [place] [address] Care Team Providers Care Life Educator Name Role Phone Pcp, Pending Only MD Primary Care Provider [phone] Allergies No known active allergies Medications meloxicam [...] PCV) 09/09/2015 Shingrix (#1) 09/09/2015 Influenza Vaccine (#1) 2025 RSV Vaccine (60+ or ) (1 [...] this topic Medical Devices Implanted Type Area Bacteriology Teacher Device Identifier Shelf Expiration Date Model / Serial / Lot Screw Bio Composite [id number] - [id number] Implanted:Qty: 1 on 12/12/2013 by Aundrea Xie MD at [facility] / [facility] Left: Shoulder [employer] ARTHROSCOPY [facility] [id number] / / [place] [address] AETNA ALL OTHERS AETNA ALL OTHERS Care Teams Life Educator Relationship Specialty Start Date End Date Pcp, Pending Only, [place], [place] [phone] PCP - General Internal Medicine 11/29/13
--- OUTSIDE RECORDS SUMMARY | 2025-02-14 12:08 | XMS_ITS | Clinical Summary ---
Author Organization [employer] [facility] are Address [address] [place], [place] [id number] Phone Care Team Providers Care Coal Bagger Name Role Phone Tammy Acevedo LPN Unavailable [...]
--- OUTSIDE RECORDS SUMMARY | 2025-02-14 12:08 | XMS_ITS | Encounter Summary ---
Author Organization [place] [address] Care Team Providers Care Apron Cleaner Name Role Phone Naila Ram JOANNE Primary Care Provider [phone] Encounter Details Date Type Department Care Team (Late st Contact Info) Description 11/25/2013 Orders Only SEP Gastro CVH [address] [facility] [address] [place] [address] Leo Ortega MD [address] [place] [address] Social History Tobacco Use Types Packs/Day Years [...] ORDERABLES Fin al Result Performing Organization Address City/State/[facility] Co de Phone Number [facility] [address] [place] [address] documented in this encounter Visit Diagnoses Not on filedocumented in this encounter Care Teams Apron Cleaner Relationship Specialty Start Date End Date Naila Ram ARNP [address] [place] [address] [address] [place] [address] PCP - General Nurse Practitioner-Family 11/25/12 documented as of this encounter
--- OUTSIDE RECORDS SUMMARY | 2025-02-14 12:08 | XMS_ITS | Clinical Summary ---
Author Organization [facility] Address [address] [facility] [address] [place] [address] Phone Care Team Providers Care Radiologist Physician Name Role Phone Arslan NICHOLAS, Brendan Guillory [phone] Conditions or Problems No information available. Medications No information available. Medications Administered No information available. Allergies, Adverse Reactions, Alerts No information available. Results No information available. Plan of Care No information available. Procedures No information available. Vital Signs No information available. Immunizations No information available. Advance Directives No information available.
== END 2025-02-14 23:59 | disposition home or self-care (01) ==
LOC: RAD 12:06
PROVIDERS: PCP Family Medicine; Visit Provider Podiatrist
DX: S82.432 Displaced oblique fracture of shaft of left fibula (principal)
CPT/HCPCS: 73590